=== PATIENT | female | born 1945 | race Caucasian/White ===

== ENCOUNTER 2018-01-30 08:58 | Inpatient (IN) | payer MEDICARE, OTHER ==
[~2018-01-30] VITALS: Ht 162.6 cm; Wt 81.7 kg
[~2018-01-30 08:58] MED LIST: ASPI325 PO; HYDACE5 PO; LISHYD2025 PO; MULVITMINF PO
[2018-01-30] MEDS ORDERED: ALPR.25 PO (09:20)
[2018-01-30 10:13] LABS: Alanine Aminotransfer (ALT/SGP 40 U/L (12-78); Albumin, Blood 3.7 g/dL (3.4-5.0); Albumin/Globulin Ratio 1.1 (0.8-1.8); Alk Phos 61 U/L (50-136); Anion Gap 9 mmol/L (6-16); Aspartate Aminotrans (AST/SGOT 23 U/L (12-37); Bilirubin, Total 0.4 mg/dL (0.1-1.0); Blood Urea Nitrogen 12 mg/dL (8-24); Bun/Creatinine Ratio 24.3 (12.0-20.0); CO2, Blood 25 mmol/L (21-32); Calcium, Blood 8.4 mg/dL (8.5-10.1); Chloride, Blood 106 mmol/L (98-108); Creatinine, Blood 0.49 mg/dL (0.40-1.00); Globulin, Blood 3.4 g/dL (2.2-4.0); Glomerular Filtration Rate >60 (60-); Glucose, Blood 118 mg/dL (70-99); Potassium, Blood 3.7 mmol/L (3.5-5.5); Sodium, Blood 140 mmol/L (136-145); Total Protein, Blood 7.1 g/dL (6.4-8.2)
[2018-01-30 10:15] LABS: Prothrombin Time Results 10.3 Sec (9.7-11.5)
[2018-01-30 10:25] LABS: BASOPHILS ABSOLUTE AUTO 0.05 K/mm3 (0.00-0.23); BASOPHILS PERCENT AUTO 0 % (0-2); EOSINOPHILS ABSOLUTE AUTO 0.46 K/mm3 (0.00-0.68); EOSINOPHILS PERCENT AUTO 4 % (0-6); Hematocrit 41.4 % (33.0-51.0); Hemoglobin 14.4 g/dL (11.5-16.0); IMMATURE GRAN ABSOLUTE AUTO 0.07 K/mm3 (0.00-0.10); IMMATURE GRAN PERCENT AUTO 1 % (0-1); LYMPHOCYTES ABSOLUTE AUTO 2.04 K/mm3 (0.84-5.20); LYMPHOCYTES PERCENT AUTO 17 % (21-46); MONOCYTES ABSOLUTE AUTO 0.65 K/mm3 (0.16-1.47); MONOCYTES PERCENT AUTO 6 % (4-13); Mean Corpuscular HGB 32.7 pg (26.0-34.0); Mean Corpuscular HGB Conc 34.8 g/dL (31.5-36.5); Mean Corpuscular Volume 94 fL (80-100); Mean Platelet Volume 9.3 fL (9.1-12.4); NEUTROPHILS ABSOLUTE AUTO 8.61 K/mm3 (1.96-9.15); NEUTROPHILS PERCENT AUTO 72 % (41-73); Platelet Count 258 K/mm3 (150-400); RDW Coefficient Variation 12.2 % (11.7-14.2); RDW Standard Deviation 42.4 fL (35.1-46.3); Red Blood Cell Count 4.41 M/mm3 (3.80-5.20); White Blood Cell Count 11.88 K/mm3 (4.00-11.30)
[2018-01-30] MEDS ORDERED: Chlor-Trimeton4 MG PO (12:21)
[2018-01-31 04:08] LABS: Hematocrit 40.3 % (33.0-51.0); Hemoglobin 13.7 g/dL (11.5-16.0)
[2018-01-31 04:25] LABS: Anion Gap 7 mmol/L (6-16); Blood Urea Nitrogen 7 mg/dL (8-24); Bun/Creatinine Ratio 12.1 (12.0-20.0); CO2, Blood 30 mmol/L (21-32); Calcium, Blood 8.1 mg/dL (8.5-10.1); Chloride, Blood 101 mmol/L (98-108); Creatinine, Blood 0.58 mg/dL (0.40-1.00); Glomerular Filtration Rate >60 (60-); Glucose, Blood 117 mg/dL (70-99); Potassium, Blood 3.8 mmol/L (3.5-5.5); Sodium, Blood 138 mmol/L (136-145)
[2018-02-02] MEDS ORDERED: BISA10S PR (09:30)
[2018-02-02] MEDS ORDERED: Percocet 5-3251 EACH PO (09:31)
== END 2018-02-02 15:45 | DRG 482 ==
LOC: ER 08:58 → SURS 08:59
PROVIDERS: Family Medicine; Internal Medicine; Orthopaedic Surgery
PROC: 0QH634Z Insertion of Internal Fixation Device into Right Upper Femur, Percutaneous Approach (ICD-10-PCS; principal; 2018-01-30 15:15)
DX: S72.001A Fracture of unspecified part of neck of right femur, initial encounter for closed fracture (principal); W19.XXXA Unspecified fall, initial encounter; I10 Essential (primary) hypertension; K59.00 Constipation, unspecified; F41.9 Anxiety disorder, unspecified; R40.2413 Glasgow coma scale score 13-15, at hospital admission; S80.01XA Contusion of right knee, initial encounter
CPT/HCPCS: 36415; 51702; 71045; 73502; 73562-RT; 80048; 80053; 85014; 85018; 85025; 85610; 93005; 93010; 94760; 96374; 96375; 96376; 97110; 97116; 97162; 97166; 97530; 97535; 99285; C1713; C1769; G8978; G8979; G8987; G8988; J0171; J0690; J1885; J2370; J2405; J3010; J7120

== ENCOUNTER 2019-04-11 08:12 | Day surgery (SDC) | payer MEDICARE, OTHER ==
[~2019-04-11] VITALS: Ht 162.6 cm; Wt 84.3 kg
[~2019-04-11 08:12] MED LIST changes: +ALPR.25 PO; +BISA10S PR; +Chlor-Trimeton4 MG PO; +Percocet 5-3251 EACH PO; +Prinivil10 MG PO
== END 2019-04-11 12:00 | disposition home or self-care (01) ==
LOC: ORSCSDS 08:12
PROVIDERS: Orthopaedic Surgery
PROC: 0SBC4ZZ Excision of Right Knee Joint, Percutaneous Endoscopic Approach (ICD-10-PCS; principal; 2019-04-11 10:10)
DX: M17.11 Unilateral primary osteoarthritis, right knee (principal); S83.281D Other tear of lateral meniscus, current injury, right knee, subsequent encounter; I10 Essential (primary) hypertension; F17.210 Nicotine dependence, cigarettes, uncomplicated; Z79.899 Other long term (current) drug therapy
CPT/HCPCS: A9270-GY; J0171; J0690; J1100; J2250; J2405; J2704; J3010; J7120

== ENCOUNTER 2021-10-06 11:09 | Emergency (ER) | payer MEDICARE, OTHER ==
[~2021-10-06] VITALS: Ht 162.6 cm; Wt 81.7 kg
[2021-10-06] MEDS ORDERED: AMOX500 PO (11:16)
[2021-10-06] MEDS ORDERED: Cleocin HCl150 MG PO (11:27)
== END 2021-10-06 11:43 | disposition home or self-care (01) ==
LOC: ER 11:09
DX: K04.7 Periapical abscess without sinus (principal); L03.211 Cellulitis of face; F17.210 Nicotine dependence, cigarettes, uncomplicated; I10 Essential (primary) hypertension; Z79.899 Other long term (current) drug therapy
CPT/HCPCS: 99283-25; A9270

== ENCOUNTER 2023-12-08 09:47 | Day surgery (SDC) | payer MEDICARE, OTHER ==
[~2023-12-08] VITALS: Ht 162.6 cm; Wt 80.0 kg
[~2023-12-08 09:47] MED LIST changes: +AMOX500 PO; +Balanced Salt Epinephrine Irrigation Solution 500 mL IR SCH; +Cleocin HCl150 MG PO; +Lidocaine HCl/Pf 1% 5 ML VIAL XX SCH; +Moxifloxacin HCL 0.5 MG/0.1 ML 0.4MLSYR LEFTEYE SCH; +NEBI5 PO; +NS 500 ML IV ONE; +PHENYLEPHRINE\\TROPICAMIDE\\TETRACAINE OPHTHALMIC DILATING SOLN LEFTEYE PRN; +Povidone-Iodine 450 DROP/30 ML Solution LEFTEYE SCH; +Triamcinolone Inj Susp 40 MG / ML 1ML Vial INJ SCH; +Triamcinolone Inj Susp 40 MG / ML 1ML Vial ONE; +ZESTORETIC 20-251 EA PO
[2023-12-08] MEDS ORDERED: NS 500 ML IV ONE (10:06)
--- NOTE | 2023-12-08 10:06 | NUR ---
12/08/23 1006 Trenton Spivey CALL LIGHT WITHIN REACH. TETRACAINE IN LEFT EYE AT 1006 AND PLEDGETT IN AT 1007
[2023-12-08] MEDS ORDERED: FentaNYL Citrate 50 MCG/ML 2 ML Injection ONE (10:33)
[2023-12-08] MEDS ORDERED: Tetracaine HCl 0.5% Opth Soln 15 ml LEFTEYE ONE (10:33)
[2023-12-08] MEDS ORDERED: Midazolam HCl 1MG / ML 2ML Vial ONE (10:33)
--- NOTE | 2023-12-08 14:35 | NUR ---
12/08/23 1435 Shade Garcia PT ADVISED TO MONITOR B/P AT HOME, AND FOLLOW UP WITH PCP IF NEEDED.
[2023-12-08 14:38] VITALS: BP 112/62
== END 2023-12-08 11:15 | disposition home or self-care (01) ==
LOC: ORSCSDS 09:47
PROVIDERS: Ophthalmology
PROC: 08RK3JZ Replacement of Left Lens with Synthetic Substitute, Percutaneous Approach (ICD-10-PCS; principal; 2023-12-08 11:00)
DX: H25.812 Combined forms of age-related cataract, left eye (principal); Z96.1 Presence of intraocular lens; I10 Essential (primary) hypertension; Z79.899 Other long term (current) drug therapy
CPT/HCPCS: J2250; J3010; J3301; J7040; V2632